=== PATIENT | male | born 1985 | race Caucasian/White ===

== ENCOUNTER → 2016-09-19 | Emergency (ER) | payer OTHER ==
[~2016-09-19] MED LIST: RANITIDINE HCL 150 MG TABLET (FP) ONE; RANITIDINE HCL 150 MG TABLET (FP) PO ONE
[2016-09-19 04:43] VITALS: BP 155/94; PULSE 74; TEMP 98.2; BMI 27.0
--- NOTE | 2016-09-19 04:59 | PDOC ---
History of Present Illness - General Chief Complaint: Choking Sensation Stated Complaint: DIFFICULTY BREATHING Time Seen by Provider: 09/19/16 04:21 History Source: Patient Exam Limitations: Language Barrier - History of Present Illness Initial Comments: 09/19/16 04:54 30yo Male patient presents to ED c/o nasal congestion last night, went to sleep and woke up with trouble breathing and managing saliva. Patient states prior to going to bed; he took some NyQuil. Patient denies CP, Abd pain, diff breathing, cough, fever, drug use, or any other complaints at this time. Timing/Duration: reports: yesterday Severity: reports: mild Possible Cause: Yes: no prior episodes Past History - Travel Traveled outside of the country in the last 30 days: No Close contact w/someone who was outside of country & ill: No - Past Medical History Allergies/Adverse Reactions: Allergies Allergy/AdvReac Type Severity Reaction Status Date / Time No Known Allergies Allergy Verified 09/19/16 04:43 Home Medications: Ambulatory Orders Famotidine [Pepcid -] 20 mg PO BID #20 tablet 09/19/16 Other medical history: Pt denies - Immunization History Immunization Up to Date: Yes - Psycho/Social/Smoking Cessation Hx Anxiety: No Suicidal Ideation: No Smoking History: Never smoked Hx Alcohol Use: No Drug/Substance Use Hx: No Substance Use Type: None Respiratory Specific PMHX - Complaint Specific PMHX Angina: No Bronchitis: No Pneumonia: No Pulmonary Embolus: No TB (Tuberculosis): No Review of Systems - Review of Systems Able to Perform ROS?: Yes Is the patient limited Hungarian proficient: No Constitutional: No: Chills, Fever HEENTM: Yes: Nose Congestion, Difficulty Swallowing. No: Throat Pain, Throat Swelling, Mouth Pain, Mouth Swelling Respiratory: No: Cough, Orthopnea, Shortness of Breath, Stridor, Wheezing Cardiac (ROS): No: Chest Pain ABD/GI: No: Nausea, Vomiting Integumentary: No: Rash Neurological: No: Headache, Numbness, Seizure, Weakness, Dizziness All Other Systems: Reviewed and Negative *Physical Exam - Vital Signs Last Vital Signs Temp Pulse Resp BP Pulse Ox 98.2 F 74 19 155/94 100 09/19/16 04:40 09/19/16 04:40 09/19/16 04:40 09/19/16 04:40 09/19/16 04:40 - Physical Exam General Appearance: Yes: Nourished, Appropriately Dressed. No: Apparent Distress, Mild Distress, Moderate Distress, Severe Distress HEENT: positive: EOMI, TITI, Normal ENT Inspection, Normal Voice, Symmetrical, TMs Normal, Pharynx Normal. negative: Pharyngeal Erythema, Tonsillar Exudate, Tonsillar Erythema, Nasal Congestion, Rhinorrhea, TM Bulging, TM Dull, TM Erythema Neck: positive: Trachea midline, Normal Thyroid, Supple. negative: Stridor, Lymphadenopathy (R), Lymphadenopathy (L) Respiratory/Chest: positive: Lungs Clear, Normal Breath Sounds. negative: Chest Tender, Respiratory Distress, Accessory Muscle Use, Labored Respiration Cardiovascular: positive: Regular Rhythm, Regular Rate. negative: Edema, JVD, Murmur Gastrointestinal/Abdominal: positive: Normal Bowel Sounds, Soft Musculoskeletal: positive: Normal Inspection. negative: CVA Tenderness Extremity: positive: Normal Capillary Refill, Normal Inspection, Normal Range of Motion Integumentary: positive: Normal Color, Dry, Warm Neurologic: positive: cupola charger insulation II-XII NML intact, Fully Oriented, Alert, Normal Mood/ Affect, Normal Response, Motor Strength 5/5 *DC/Admit/Observation/Transfer Diagnosis at time of Disposition: Nasal congestion - Discharge Dispostion Disposition: HOME Condition at time of disposition: Good Admit: No - Prescriptions Prescriptions: Famotidine [Pepcid -] 20 mg PO BID #20 tablet - Patient Instructions Printed Discharge Instructions: DI for Nasal Congestion Additional Instructions: FOLLOW UP WITH YOUR DOCTOR NEEDED. STOP TAKING NYQUIL. DRINK PLENTY WATER. Print Language: ROMANIAN
--- NOTE | 2016-09-19 05:17 | PDOC ---
*Physical Exam - Vital Signs Last Vital Signs Temp Pulse Resp BP Pulse Ox 98.2 F 74 19 155/94 100 09/19/16 04:40 09/19/16 04:40 09/19/16 04:40 09/19/16 04:40 09/19/16 04:40 Medical Decision Making - Medical Decision Making 09/19/16 05:16 agree with care from [facility] Oneal *DC/Admit/Observation/Transfer Diagnosis at time of Disposition: Nasal congestion - Prescriptions Prescriptions: Famotidine [Pepcid -] 20 mg PO BID #20 tablet - Referrals - Patient Instructions Printed Discharge Instructions: DI for Nasal Congestion Additional Instructions: FOLLOW UP WITH YOUR DOCTOR NEEDED. STOP TAKING NYQUIL. DRINK PLENTY WATER. Print Language: SENEGALESE - Post Discharge Activity
== END | disposition home or self-care (01) ==
LOC: JER 04:01
DX: R09.81 Nasal congestion (principal)
CPT/HCPCS: 99281-25; 99282-25

== ENCOUNTER 2016-12-11 03:31 | Emergency (ER) | payer OTHER ==
[2016-12-11 04:05] VITALS: BP 134/60; PULSE 74; TEMP 97.9; BMI 27.0
--- NOTE | 2016-12-11 04:50 | PDOC ---
*Physical Exam - Vital Signs Last Vital Signs Temp Pulse Resp BP Pulse Ox 97.9 F 74 14 134/60 100 12/11/16 04:03 12/11/16 04:03 12/11/16 04:03 12/11/16 04:03 12/11/16 04:03 Medical Decision Making - Medical Decision Making 12/11/16 04:47 agree with care from TOM Gonsales. All symptoms that pt said he had have now resolved. Pt hemodynamically stable. Airway patent. Pt to be discharged. *DC/Admit/Observation/Transfer Diagnosis at time of Disposition: Shortness of breath - Referrals Referrals: Mirta Campbell MD [Staff Physician] - - Patient Instructions Printed Discharge Instructions: DI for Shortness of Breath Additional Instructions: Please follow up with a primary care doctor this week. If you experience any worsening shortness of breath, chest pain, headache, dizziness, fever, chills, nausea, vomiting, diarrhea, or any new or worsening symptoms, please return to the ER. Print Language: HONG KONGER
--- NOTE | 2016-12-11 05:02 | PDOC ---
History of Present Illness - General Chief Complaint: Shortness of Breath Stated Complaint: TROUBLE BREATHING Time Seen by Provider: 12/11/16 04:00 - History of Present Illness Initial Comments: 12/11/16 04:49 CHIEF COMPLAINT: difficulty breathing HISTORY OF PRESENT ILLNESS: 30 yo M with no PMH presents to ED with difficulty breathing earlier this evening. No recent travel or sick contacts. PAST MEDICAL HISTORY: Denies past medical history FAMILY HISTORY: Denies SOCIAL HISTORY:Denies tobacco, alcohol, illicit drug use. SURGICAL HISTORY: Denies REVIEW OF SYSTEMS General/Constitutional: Denies fever or chills. Denies weakness, weight change. HEENT: Denies change in vision. Denies ear pain or discharge. Denies sore throat. Cardiovascular: Denies chest pain or shortness of breath. Respiratory: Denies cough, wheezing, or hemoptysis. Gastrointestinal: Denies nausea, vomiting, diarrhea or constipation. Denies rectal bleeding. Genitourinary: Denies dysuria, frequency, or change in urination. Musculoskeletal: Denies joint or muscle swelling or pain. Denies neck or back pain. Skin and breasts: Denies rash or easy bruising. Neurologic: Denies headache, vertigo, loss of consciousness, or loss of sensation. PHYSICAL EXAM General Appearance: Well-appearing, appropriately dressed. No apparent distress , no intoxication. HEENT: EOMI, PERRLA, normal ENT inspection, normal voice, TMs normal, pharynx normal. No conjunctival pallor. No photophobia, scleral icterus. Neck: Supple. Trachea midline. No tenderness, rigidity, carotid bruit, stridor , lymphadenopathy, or thyromegaly. Respiratory/Chest: Lungs CTAB. No shortness of breath, chest tenderness, respiratory distress, accessory muscle use. No crackles, rales, rhonchi, stridor , wheezing, dullness Cardiovascular: RRR. S1, S2. No JVD, murmur, bradycardia, tachycardia. Vascular Pulses: Dorsalis-Pedis (R): 2+, Dorsalis-Pedis (L): 2+ Gastrointestinal/Abdominal: Normal bowel sounds. Abdomen soft, non-distended. No tenderness or rebound tenderness. No organomegaly, pulsatile mass, guarding , hernia, hepatomegaly, splenomegaly. Lymphatic: No adenopathy, tenderness. Musculoskeletal/Extremities: Normal inspection. FROM of all extremities, normal capillary refill. Pelvis Stable. No CVA tenderness. No tenderness to extremities, pedal edema, swelling, erythema or deformity. Integumentary: Appropriate color, dry, warm. No cyanosis, erythema, jaundice or rash Neurologic: supervisor wood crew II-XII intact. Fully oriented, alert. Appropriate mood/affect. Motor strength 5/5. No appreciable EOM palsy, facial droop or sensory deficit. Past History - Past Medical History Allergies/Adverse Reactions: Allergies Allergy/AdvReac Type Severity Reaction Status Date / Time acetaminophen [From NyQuil] Allergy Verified 12/11/16 04:02 dextromethorphan HBr Allergy Verified 12/11/16 04:02 [From NyQuil] doxylamine succinate Allergy Verified 12/11/16 04:02 [From NyQuil] pseudoephedrine HCl Allergy Verified 12/11/16 04:02 [From NyQuil] Home Medications: Ambulatory Orders Alprazolam [Xanax] 0.25 mg PO TID PRN #15 tablet MDD 3 tabs 12/18/16 - Immunization History Immunization Up to Date: Yes - Psycho/Social/Smoking Cessation Hx Anxiety: No Suicidal Ideation: No Smoking History: Never smoked Have you smoked in the past 12 months: No Information on smoking cessation initiated: No Hx Alcohol Use: No Drug/Substance Use Hx: No Substance Use Type: None *Physical Exam - Vital Signs Last Vital Signs Temp Pulse Resp BP Pulse Ox 97.9 F 74 14 134/60 100 12/11/16 04:03 12/11/16 04:03 12/11/16 04:03 12/11/16 04:03 12/11/16 04:03 *DC/Admit/Observation/Transfer Diagnosis at time of Disposition: Shortness of breath - Discharge Dispostion Disposition: HOME Admit: No - Referrals Referrals: Mirta Campbell MD [Staff Physician] - - Patient Instructions Printed Discharge Instructions: DI for Shortness of Breath Additional Instructions: Please follow up with a primary care doctor this week. If you experience any worsening shortness of breath, chest pain, headache, dizziness, fever, chills, nausea, vomiting, diarrhea, or any new or worsening symptoms, please return to the ER. Print Language: JAPANESE
== END 2016-12-11 05:21 | disposition home or self-care (01) ==
LOC: JER 03:31
DX: R06.02 Shortness of breath (principal)
CPT/HCPCS: 99284-25

== ENCOUNTER 2016-12-18 18:34 | Emergency (ER) | payer OTHER ==
[2016-12-18 18:46] VITALS: BMI 26.8
[2016-12-18] MEDS ORDERED: SODIUM CHLORIDE 1,000 ML IV STA (19:40)
[2016-12-18 20:21] LABS: BASOPHIL 0.3 % (0-2.0); EOSINOPHIL 0.1 % (0-4.5); MCH 28.5 pg (25.7-33.7); MCHC 34.4 g/dl (32.0-35.9); MEAN CELL VOLUME 82.8 fl (80-96); NEUTROPHILS 71.6 % (42.8-82.8); PLATELET COUNT 224 K/MM3 (134-434); RDW 13.5 % (11.9-15.9); WHITE BLOOD COUNT 5.8 K/mm3 (4.0-10.0)
[2016-12-18 20:46] LABS: ALBUMIN 4.2 g/dl (3.4-5.0); ANION GAP 10 (8-16); BILIRUBIN,TOTAL 0.6 mg/dL (0.2-1.0); CO2 25 mmol/L (21-32); COCKROFT - GAULT 72.91; CREATININE 1.2 mg/dL (0.7-1.3); GLUCOSE,RANDOM 103 mg/dL (74-106); SGOT/AST 28 U/L (15-37); SGPT/ALT 44 U/L (12-78); TOT PROT 7.8 g/dl (6.4-8.2)
[2016-12-18 20:55] LABS: ALK PHOS 103 U/L (45-117); THYROID STIMULATING HORMONE 0.92 uIU/ml (0.358-3.74); TROPONIN I < 0.02 ng/ml (0.00-0.05)
[2016-12-18] MEDS ORDERED: ALPRAZolam 0.25 MG TABLET PO ONE (21:05)
--- NOTE | 2016-12-18 21:12 | PDOC ---
History of Present Illness - General Chief Complaint: Shortness of Breath Stated Complaint: SHORTNESS OF BREATH Time Seen by Provider: 12/18/16 19:11 History Source: Patient Exam Limitations: No Limitations - History of Present Illness Initial Comments: 12/18/16 21:06 30yo Male patient presents to ED with multiple complaints. Patient reports this past Saturday, he was seen and evaluated at [facility] for chest pain and trouble breathing; he was diagnosed with hypokalemia and discharged. He states similar symptom happened again on that following Saturday; again diagnosed with atypical chest pains and discharged from [facility]. Patient was seen for trouble breathing today at [facility]; Dx with Rhinitis and discharged. Patient presents to this ED c/o chest pains, numbness to all extremities that radiate down then up to his head. He denies blurred vision, change in vision, weakness, dyphagia, fever, back pain, n/v/d, rash, dysuria, hematuria, or any other complaints. PCP: Martine Reina Timing/Duration: other (Ongoing) Severity: mild Modifying Factors: worse with: cold therapy, eating, immobilization, medication , movement, rest, other Associated Symptoms: denies: denies symptoms, chest pain, cough, diaphoresis, fever/chills, headaches, loss of appetite, malaise, nausea/vomiting, rash, seizure, shortness of breath, syncope, weakness, other Aspirin Received prior to arrival: No: no aspirin today, unknown, 81 mg x 1, 81 mg x 2, 81 mg x 3, 81 mg x 4, 325 mg x 1, provided at home, provided by EMS, provided by ED [facility] Contraindications(Core Measure): No: Allergy, Other, Active Blding w/i 24 hrs., Plavix, Receiving Warfarin Past History - Travel Traveled outside of the country in the last 30 days: No Close contact w/someone who was outside of country & ill: No - Past Medical History Allergies/Adverse Reactions: Allergies Allergy/AdvReac Type Severity Reaction Status Date / Time acetaminophen [From NyQuil] Allergy Verified 12/18/16 18:46 dextromethorphan HBr Allergy Verified 12/18/16 18:46 [From NyQuil] doxylamine succinate Allergy Verified 12/18/16 18:46 [From NyQuil] pseudoephedrine HCl Allergy Verified 12/18/16 18:46 [From [facility]] Home Medications: Ambulatory Orders Alprazolam [Xanax] 0.25 mg PO TID PRN #15 tablet MDD 3 tabs 12/18/16 Other medical history: denies - Immunization History Immunization Up to Date: Yes - Psycho/Social/Smoking Cessation Hx Anxiety: No Suicidal Ideation: No Smoking History: Never smoked Have you smoked in the past 12 months: No Information on smoking cessation initiated: No Hx Alcohol Use: No Drug/Substance Use Hx: No Substance Use Type: None Review of Systems - Review of Systems Able to Perform ROS?: Yes Is the patient limited North Korean proficient: No Constitutional: No: Chills, Fever, Loss of Appetite, Malaise, Night Sweats, Weakness HEENTM: No: Eye Pain, Blurred Vision, Nose Congestion, Nose Bleeding, Throat Pain, Throat Swelling, Mouth Pain, Difficulty Swallowing, Mouth Swelling Respiratory: Yes: See HPI. No: Cough, Shortness of Breath, SOB with Exertion, Wheezing, Hemoptysis Cardiac (ROS): Yes: Chest Pain. No: Edema, Irregular Heart Rate, Lightheadedness, Palpitations, Syncope, Chest Tightness ABD/GI: No: Symptoms Reported, See HPI, Abdominal Distended, Abd. Pain w/ defecation, Blood Streaked Bowels, Constipated, Diarrhea, Difficulty Swallowing , Nausea, Poor Appetite, Poor Fluid Intake, Rectal Bleeding, Vomiting, Indigestion, Abdominal cramping, Tarry Stools, Other : No: Symptoms Reported, See HPI, Burning, Dysuria, Discharge, Frequency, Flank Pain, Hematuria, Incontinence, Pain, Urgency, Testicular Mass, Testicular Swelling, Lesions, Testicular Pain, Other Musculoskeletal: No: Symptoms Reported, See HPI, Back Pain, Gout, Joint Pain, Joint Swelling, Muscle Pain, Muscle Weakness, Neck Pain, Joint Stiffness, Other Integumentary: No: Symptoms Reported, See HPI, Bruising, Change in Color, Change in Hair/Nails, Dryness, Erythema, Flushing, Lesions, Lumps, Pallor, Pruritus, Rash, Sweating, Other Neurological: Yes: Numbness, Pre-Existing Deficit. No: Symptoms reported, See HPI, Headache, Paresthesia, Seizure, Tingling, Tremors, Weakness, Unsteady Gait , Ataxia, Dizziness, Other Psychiatric: Yes: Anxiety. No: Depression, Frequent Crying, Stressors, Sleep Pattern Change, Emotional Problems, Mood Swings, Change in Appetite, Other All Other Systems: Reviewed and Negative *Physical Exam - Vital Signs Last Vital Signs Temp Pulse Resp BP Pulse Ox 97.9 F 109 H 20 146/96 100 12/18/16 18:39 12/18/16 18:39 12/18/16 18:39 12/18/16 18:39 12/18/16 18:39 - Physical Exam General Appearance: Yes: Nourished, Appropriately Dressed. No: Apparent Distress, Mild Distress, Moderate Distress, Severe Distress HEENT: positive: EOMI, TITI, Normal ENT Inspection, Normal Voice, Symmetrical, TMs Normal, Pharynx Normal. negative: Nasal Congestion, Rhinorrhea, TM Bulging , TM Dull, TM Erythema Neck: positive: Trachea midline, Normal Thyroid, Supple. negative: Stridor, Lymphadenopathy (R), Lymphadenopathy (L), Rigidity, Tender midline Respiratory/Chest: positive: Lungs Clear, Normal Breath Sounds. negative: Chest Tender, Respiratory Distress, Accessory Muscle Use, Labored Respiration, Rapid RR, Rhonchi, Stridor, Wheezing, Hyperresonant Cardiovascular: positive: Regular Rhythm, Regular Rate Gastrointestinal/Abdominal: positive: Normal Bowel Sounds, Soft. negative: Distended, Guarding, Rebound, Tenderness Musculoskeletal: positive: Normal Inspection. negative: CVA Tenderness, Decreased Range of Motion, Vertebral Tenderness Extremity: positive: Normal Capillary Refill, Normal Inspection, Normal Range of Motion, Pelvis Stable. negative: Pedal Edema, Swelling, Calf Tenderness, Erythema, Inflammation Integumentary: positive: Normal Color, Dry, Warm. negative: Erythema, Clammy, Diaphoresis, Swelling, Bruising Neurologic: positive: frame stripper II-XII NML intact, Fully Oriented, Alert, Normal Mood/ Affect, Normal Response, Motor Strength 5/5 Heart Score/ECG Review - History History: Slightly suspicious - Electrocardiogram EKG: Normal - Age Age: </= 45 - Risk Factors Risk Factors Heart Score: No Hx Hypercholesterolemia, No Hx Hypertension, No Hx Diabetes, No Smoking History, No Positive family hx of cardiac disease, No Hx Obesity Based on the list above the patient has:: No risk factors known - Troponin Troponin: </= normal limit - Score Heart Score - Total: 0 - ECG Impressions Normal ECG: Yes Non-specific ST Elevation: No Ischemic Changes: No Bradycardia: No Torsades mary Pointes: No WPW: No ED Treatment Course - LABORATORY CBC & Chemistry Diagram: 12/18/16 20:10 12/18/16 20:10 - ADDITIONAL ORDERS Additional order review: Laboratory Results 12/18/16 20:10 Sodium 139 Potassium 3.8 Chloride 104 Carbon Dioxide 25 Anion Gap 10 BUN 17 Creatinine 1.2 Creat Clearance w eGFR > 60 Random Glucose 103 Calcium 9.0 Total Bilirubin 0.6 AST 28 ALT 44 Alkaline Phosphatase 103 Creatine Kinase 259 Troponin I < 0.02 Total Protein 7.8 Albumin 4.2 TSH 0.92 12/18/16 20:10 RBC 5.33 MCV 82.8 MCHC 34.4 RDW 13.5 MPV 9.0 Neutrophils % 71.6 Lymphocytes % 22.7 Monocytes % 5.3 Eosinophils % 0.1 Basophils % 0.3 - RADIOLOGY Radiology Studies Ordered: Category Date Time Status HEAD CT WITHOUT CONTRAST [CT] Stat CT Scan 12/18/16 19:40 Completed CHEST PA & LAT [RAD] Stat Radiology 12/18/16 19:40 Completed - Medications Given in the ED: ED Medications Discontinued Medications Generic Name Dose Route Start Last Admin Trade Name Freq PRN Reason Stop Dose Admin Sodium Chloride 1,000 mls @ 1,000 mls/hr 12/18/16 19:40 12/18/16 20:21 Normal Saline - IV 12/18/16 20:39 1,000 mls/hr ASDIR STA Administration *DC/Admit/Observation/Transfer Diagnosis at time of Disposition: Atypical chest pain, Anxiety about health - Discharge Dispostion Disposition: HOME Condition at time of disposition: Good Admit: No - Prescriptions Prescriptions: Alprazolam [Xanax] 0.25 mg PO TID PRN #15 tablet MDD 3 tabs PRN Reason: Anxiety - Referrals Referrals: Martine Patel MD [Primary Care Provider] - Clarke Shirley NP [Nurse Practitioner] - Johnie Greenwood MD [Staff Physician] - - Patient Instructions Printed Discharge Instructions: DI for Anxiety -- Adult, DI for Atypical Chest Pain Additional Instructions: Dawson un seguimiento con la llamada del Dr. Greenwood (Neurologa) para programar la nadya. Adems, siga con Clarke Shirley (Psiquiatra), llame para programar nadya. Dawson un seguimiento con ambos proveedores de atencin mdica, segn se discuti. Mendoza Ct-Scan fue negativo para cualquier causa orgnica. Mendoza radiografa de trax era normal, y todos delvin anlisis de christophe regresaron normales. Usted necesita sandy a ambos especialistas. [place] los medicamentos segn lo prescrito. No conduzca, moises alcohol ni opere maquinaria pesada mientras est tomando Xanax. Usted slo diony rohith medicamento cuando sienta que delvin sntomas aparecen segn lo prescrito. Follow up with Dr. Greenwood (Neurology) call to schedule appointment. Also, follow up with Clarke Shirley (Psychiatry), call to schedule appointment. Follow up with both health care providers as discussed. Your Ct- Scan was negative for any organic cause. Your chest x-ray was normal, and all your blood work returned normal. You need to see both specialist. Take medications as prescribed. Do not drive, drink alcohol, or operate heavy machinery while taking Xanax. You will only take this medication when you feel your symptoms coming on as prescribed. Print Language: ITALIAN
[2016-12-18] MEDS ORDERED: ALPRAZolam 0.25 MG TABLET ONE (21:15)
--- NOTE | 2016-12-18 21:48 | PDOC ---
*Physical Exam - Vital Signs Last Vital Signs Temp Pulse Resp BP Pulse Ox 97.9 F 109 H 20 146/96 100 12/18/16 18:39 12/18/16 18:39 12/18/16 18:39 12/18/16 18:39 12/18/16 18:39 ED Treatment Course - LABORATORY CBC & Chemistry Diagram: 12/18/16 20:10 12/18/16 20:10 - ADDITIONAL ORDERS Additional order review: Laboratory Results 12/18/16 12/18/16 20:10 20:10 Sodium 139 Potassium 3.8 Chloride 104 Carbon Dioxide 25 Anion Gap 10 BUN 17 Creatinine 1.2 Creat Clearance w eGFR > 60 Random Glucose 103 Calcium 9.0 Total Bilirubin 0.6 AST 28 ALT 44 Alkaline Phosphatase 103 Creatine Kinase 259 Creatine Kinase Index 1.2 CK-MB (CK-2) 3.092 CK-MB (CK-2) Rel Index Cancelled Troponin I < 0.02 Total Protein 7.8 Albumin 4.2 TSH 0.92 12/18/16 20:10 RBC 5.33 MCV 82.8 MCHC 34.4 RDW 13.5 MPV 9.0 Neutrophils % 71.6 Lymphocytes % 22.7 Monocytes % 5.3 Eosinophils % 0.1 Basophils % 0.3 - Medications Given in the ED: ED Medications Discontinued Medications Generic Name Dose Route Start Last Admin Trade Name Freq PRN Reason Stop Dose Admin Alprazolam 0.25 mg 12/18/16 21:05 12/18/16 21:18 Xanax - PO 12/18/16 21:06 0.25 mg ONCE ONE Administration Sodium Chloride 1,000 mls @ 1,000 mls/hr 12/18/16 19:40 12/18/16 20:21 Normal Saline - IV 12/18/16 20:39 1,000 mls/hr ASDIR STA Administration Medical Decision Making - Medical Decision Making 12/18/16 21:48 agree with care from TOM No *DC/Admit/Observation/Transfer Diagnosis at time of Disposition: Atypical chest pain, Anxiety about health - Discharge Dispostion Disposition: HOME - Prescriptions Prescriptions: Alprazolam [Xanax] 0.25 mg PO TID PRN #15 tablet MDD 3 tabs PRN Reason: Anxiety - Referrals Referrals: Clarke Shirley NP [Nurse Practitioner] - Johnie Greenwood MD [Staff Physician] - Martine Patel MD [Primary Care Provider] - - Patient Instructions Printed Discharge Instructions: DI for Atypical Chest Pain, DI for Anxiety -- Adult Additional Instructions: Dawson un seguimiento con la llamada del Dr. Greenwood (Neurologa) para programar la nadya. Adems, siga con Clarke Shirley (Psiquiatra), llame para programar nadya. Dawson un seguimiento con ambos proveedores de atencin mdica, segn se discuti. Mendoza Ct-Scan fue negativo para cualquier causa orgnica. Mendoza radiografa de trax era normal, y todos delvin anlisis de christophe regresaron normales. Usted necesita sandy a ambos especialistas. [place] los medicamentos segn lo prescrito. No conduzca, moises alcohol ni opere maquinaria pesada mientras est tomando Xanax. Usted slo diony rohith medicamento cuando sienta que delvin sntomas aparecen segn lo prescrito. Follow up with Dr. Greenwood (Neurology) call to schedule appointment. Also, follow up with Clarke Shirley (Psychiatry), call to schedule appointment. Follow up with both health care providers as discussed. Your Ct- Scan was negative for any organic cause. Your chest x-ray was normal, and all your blood work returned normal. You need to see both specialist. Take medications as prescribed. Do not drive, drink alcohol, or operate heavy machinery while taking Xanax. You will only take this medication when you feel your symptoms coming on as prescribed. Print Language: EQUATORIAL GUINEAN
[2016-12-18 22:00] LABS: URINE MARIJUANA THC NEGATIVE ng/ml (CUTOFF=50)
[2016-12-18 22:09] LABS: URINE APPEARANCE CLEAR; URINE BILIRUBIN NEGATIVE (NEGATIVE); URINE BLOOD NEGATIVE (NEGATIVE); URINE COLOR STRAW; URINE GLUCOSE (UA) NEGATIVE (NEGATIVE); URINE KETONE TRACE (NEGATIVE); URINE LEUK ESTERASE NEGATIVE (NEGATIVE); URINE NITRITE NEGATIVE (NEGATIVE); URINE PROTEIN NEGATIVE (NEGATIVE); URINE UROBILINOGEN NEGATIVE E.U./dl (0.2-1.0)
[2016-12-18 22:38] VITALS: BP 121/78; PULSE 82; TEMP 98.1
--- NOTE | 2016-12-19 12:46 | EKG ---
Test Reason : Blood Pressure : / mmHG Vent. Rate : 080 BPM Atrial Rate : 080 BPM P-R Int : 172 ms QRS Dur : 088 ms QT Int : 408 ms P-R-T Axes : 063 097 043 degrees QTc Int : 470 ms SINUS RHYTHM WITH PREMATURE ATRIAL COMPLEXES RIGHTWARD AXIS BORDERLINE ECG NO PREVIOUS ECGS AVAILABLE Confirmed by MADINA BRASWELL MD ([id number]) on 12/19/2016 12:46:30 PM Referred By: Confirmed By:MADINA BRASWELL MD
== END 2016-12-18 22:38 | disposition home or self-care (01) ==
LOC: JER 18:34
PROC: 3E0337Z Introduction of Electrolytic and Water Balance Substance into Peripheral Vein, Percutaneous Approach (ICD-10-PCS; principal; 2016-12-18)
DX: R07.89 Other chest pain (principal); F06.4 Anxiety disorder due to known physiological condition
CPT/HCPCS: 36415; 70450-TC; 71020-TC; 80053; 80307; 81003; 82550; 82553; 84443; 84484; 85025; 93005; 93010; 99282-25

== ENCOUNTER 2024-03-15 11:59 | Emergency (ER) | payer OTHER ==
[2024-03-15 12:17] VITALS: BP 142/81; PULSE 77; RESP 18; TEMP 98.4; BMI 26.4
== END 2024-03-15 18:54 | disposition home or self-care (01) ==
LOC: JER 11:59
DX: R51.9 Headache, unspecified (principal); H81.12 Benign paroxysmal vertigo, left ear; H93.12 Tinnitus, left ear
CPT/HCPCS: 70450-TC; 99284-25